=== PATIENT | male | born 1980 | race Asian ===

== ENCOUNTER 2020-01-30 10:36 | Emergency (ER) | payer OTHER ==
[~2020-01-30] VITALS: Ht 167.6 cm; Wt 92.5 kg
[2020-01-30 13:37] VITALS: BP 138/70; TEMP 98.5
== END 2020-01-30 13:37 | disposition home or self-care (01) ==
LOC: ED 10:36
DX: S86.811A Strain of other muscle(s) and tendon(s) at lower leg level, right leg, initial encounter (principal); X50.1XXA Overexertion from prolonged static or awkward postures, initial encounter; Y92.89 Other specified places as the place of occurrence of the external cause
CPT/HCPCS: 96372; 99283; J1885